=== PATIENT | female | born 1955 ===

== ENCOUNTER → 2021-10-03 | Outpatient (CLI) | payer MEDICARE | LOC: COL.RAD 13:22 | DX: M16.11 Unilateral primary osteoarthritis, right hip (principal) ==

== ENCOUNTER → 2021-10-06 | Outpatient (CLI) | payer MEDICARE | LOC: COL.RAD 11:20 | DX: R22.41 Localized swelling, mass and lump, right lower limb (principal); M25.551 Pain in right hip ==

== ENCOUNTER 2021-10-12 13:00 | Outpatient (RCR) | payer MEDICARE | END 2021-10-15 | LOC: MKS.ESL.PT | DX: M25.551 Pain in right hip (principal) ==

== ENCOUNTER 2021-10-31 13:15 | Outpatient (RCR) | payer MEDICARE | END 2021-11-01 10:45 | disposition home or self-care (01) | LOC: MKS.ESL.PT 13:15 | DX: M25.551 Pain in right hip (principal) ==

== ENCOUNTER → 2024-02-06 | Outpatient (CLI) | payer MEDICARE, MEDICAID ==
[~2024-02-06] MED LIST: Iohexol 300 - 10 ML VIAL IV ONE; Triamcinolone 40 MG/ML 1 ML VIAL IJ ONE
== END ==
LOC: COL.RAD 13:12
DX: M16.11 Unilateral primary osteoarthritis, right hip (principal)
CPT/HCPCS: J0665; J3301; Q9967

== ENCOUNTER → 2024-04-15 | Outpatient (CLI) | payer MEDICARE, MEDICAID | LOC: MC.RAD 09:26 | DX: Z12.31 Encounter for screening mammogram for malignant neoplasm of breast (principal); N63.10 Unspecified lump in the right breast, unspecified quadrant; N64.89 Other specified disorders of breast ==